=== PATIENT | female | born 1990 | race American Indian/Alaskan Native ===

== ENCOUNTER 2017-01-28 17:46 | Outpatient (CLI) | payer MEDICAID | END 2017-01-28 17:47 | disposition critical access hospital (66) | LOC: EMS 17:46 | PROVIDERS: ATTEND Surgery | DX: R10.9 Unspecified abdominal pain (principal); R03.0 Elevated blood-pressure reading, without diagnosis of hypertension; Z72.89 Other problems related to lifestyle | CPT/HCPCS: A0425; A0429 ==

== ENCOUNTER 2017-01-28 18:02 | Observation (INO) | payer MEDICAID ==
[2017-01-28] MEDS ORDERED: PANTOPRAZOLE 40 MG VIAL IVP STA (18:09)
[2017-01-28] MEDS ORDERED: MULTIVITAMIN 10 ML in SODIUM CHLORIDE 0.9% 1,000 ML IV STA (18:09)
[2017-01-28] MEDS ORDERED: MAGNESIUM SULFATE 2 GRAM 2 GM/50 ML BAG IV STA (18:09)
[2017-01-28] MEDS ORDERED: LORazepam 2 MG/ML VIAL IVP STA (18:09)
[2017-01-28] MEDS ORDERED: ONDANSETRON 4 MG/2 ML VIAL IVP STA ×2 (18:09→20:38)
[2017-01-28] MEDS ORDERED: THIAMINE INJ 100 MG, FOLIC ACID INJ 1 MG in SODIUM CHLORIDE 0.9% 100ML 100 ML IV STA (18:09)
--- NOTE | 2017-01-28 18:12 | ED Physician Documentation ---
PD HPI ABD PAIN - Stated complaint Stated Complaint: ABD PX/ETOH - History obtained from History obtained from: Patient, EMS - History of Present Illness Timing - onset: Other (26-year-old woman with chronic pancreatitis, diabetes, history of alcoholism presents by ambulance. Her chief complaint is left upper quadrant pain that started earlier today. She admits that she has been drinking for several days despite having been sober prior to that for quite some time. She is also out of her medications including Ativan and metformin. She says she is on control though.) Review of Systems Ten Systems: 10 systems reviewed and negative Constitutional: denies: Fever, Chills Nose: denies: Rhinorrhea / runny nose, Congestion Cardiac: denies: Chest pain / pressure, Palpitations Respiratory: denies: Dyspnea, Cough GI: reports: Abdominal Pain, Nausea, Vomiting. denies: Hematemesis PD PAST MEDICAL HISTORY - Past Medical History Past Medical History: Yes Endocrine/Autoimmune: Type 2 diabetes GI: Pancreatitis - Past Surgical History Past Surgical History: No - Present Medications Home Medications: Ambulatory Orders Medication Instructions Recorded Confirmed Lorazepam [Ativan] 2 mg PO BID 01/28/17 01/28/17 Metoprolol Tartrate 1 tab PO BID 01/28/17 01/28/17 metFORMIN [Glucophage] 1 tab PO DAILY 01/28/17 01/28/17 - Allergies Allergies/Adverse Reactions: Allergies Allergy/AdvReac Type Severity Reaction Status Date / Time No Known Drug Allergies Allergy Verified 01/28/17 18:11 - Social History Does the pt drink ETOH?: Yes ETOH Use: Liquor - Family History Family history: reports: Non contributory PD ED PE NORMAL - Vitals Vital signs reviewed: Yes - General General: Alert and oriented X 3, No acute distress - HEENT HEENT: EOMI - Neck Neck: Supple, no meningeal sign, No bony TTP - Cardiac Cardiac: RRR (Tachycardic), No murmur - Respiratory Respiratory: No respiratory distress, Clear bilaterally - Abdomen Abdomen: Other (Mild tenderness left upper quadrant without surgical signs) - Extremities Extremities: No deformity, No tenderness to palpate, No edema, No calf tenderness / cord - Neuro Neuro: Alert and oriented X 3, Normal speech - Psych Psych: Normal mood, Normal affect Results - Vitals Vitals: Vital Signs - 24 hr 01/28/17 01/28/17 01/28/17 18:09 20:01 22:23 Temperature 37.1 C Heart Rate 116 H 113 H 120 H Respiratory 20 19 20 Rate Blood Pressure 166/111 H 130/99 H 130/84 H O2 Saturation 96 98 97 01/28/17 22:46 Temperature 37.0 C Heart Rate Respiratory Rate Blood Pressure O2 Saturation Oxygen O2 Source Room air - Labs Labs: Laboratory Tests 01/28/17 01/28/17 01/28/17 18:25 18:25 20:15 WBC 12.9 H RBC 5.00 Hgb 14.5 Hct 44.2 MCV 88.4 MCH 29.0 MCHC 32.8 RDW 16.0 H Plt Count 574 H MPV 6.8 L Neut # 10.1 H Lymph # 2.0 [place] # 0.5 Eos # 0.0 Baso # 0.1 Absolute Nucleated RBC 0.01 Nucleated RBC % 0.1 Sodium 138 Potassium 3.5 Chloride 96 L Carbon Dioxide 19 L Anion Gap 23.0 H BUN 5 L Creatinine 0.7 Estimated GFR (MDRD) 100 Glucose 294 H POC Whole Bld Glucose Calcium 9.0 Magnesium 2.0 Total Bilirubin 0.8 AST 49 H ALT 12 Alkaline Phosphatase 113 Total Protein 8.7 H Albumin 5.1 Globulin 3.6 Albumin/Globulin Ratio 1.4 Lipase 12 L Urine Color Urine Clarity Urine pH Ur Specific [place] Urine Protein Urine Glucose (UA) Urine Ketones Urine Occult Blood Urine Nitrite Urine Bilirubin Urine Urobilinogen Ur Leukocyte Esterase Urine RBC Urine WBC Ur Squamous Epith Cells Urine Bacteria Ur Microscopic Review Urine Culture Comments Urine HCG, Qual Urine Opiates Screen NEGATIVE Ur Oxycodone Screen NEGATIVE Urine Methadone Screen NEGATIVE Ur Propoxyphene Screen NEGATIVE Ur Barbiturates Screen NEGATIVE Ur Tricyclics Screen NEGATIVE Ur Phencyclidine Scrn NEGATIVE Ur Amphetamine Screen NEGATIVE U Methamphetamines Scrn POSITIVE H U Benzodiazepines Scrn NEGATIVE Urine Cocaine Screen POSITIVE H U Cannabinoids Screen NEGATIVE Ethyl Alcohol 341.8 01/28/17 01/28/17 20:15 22:53 WBC RBC Hgb Hct MCV MCH MCHC RDW Plt Count MPV Neut # Lymph # [place] # Eos # Baso # Absolute Nucleated RBC Nucleated RBC % Sodium Potassium Chloride Carbon Dioxide Anion Gap BUN Creatinine Estimated GFR (MDRD) Glucose POC Whole Bld Glucose 210 H Calcium Magnesium Total Bilirubin AST ALT Alkaline Phosphatase Total Protein Albumin Globulin Albumin/Globulin Ratio Lipase Urine Color YELLOW Urine Clarity HAZY Urine pH 6.0 Ur Specific [place] 1.020 Urine Protein 30 H Urine Glucose (UA) 500 H Urine Ketones NEGATIVE Urine Occult Blood SMALL H Urine Nitrite NEGATIVE Urine Bilirubin NEGATIVE Urine Urobilinogen 0.2 (NORMAL) Ur Leukocyte Esterase SMALL H Urine RBC 6-10 H Urine WBC >25 H Ur Squamous Epith Cells FEW Squamous Urine Bacteria Few Ur Microscopic Review INDICATED Urine Culture Comments INDICATED Urine HCG, Qual NEGATIVE Urine Opiates Screen Ur Oxycodone Screen Urine Methadone Screen Ur Propoxyphene Screen Ur Barbiturates Screen Ur Tricyclics Screen Ur Phencyclidine Scrn Ur Amphetamine Screen U Methamphetamines Scrn U Benzodiazepines Scrn Urine Cocaine Screen U Cannabinoids Screen Ethyl Alcohol PD MEDICAL DECISION MAKING - ED course ED course: 26-year-old woman presents By ambulance with left upper quadrant pain in the setting of alcohol intoxication, no evidence of recurrent pancreatitis. This is most consistent with alcoholic gastritis for which she was treated with Protonix, GI cocktail, and a banana bag. Despite a blood alcohol of 350 she was awake and talking. She was administered 2 L of crystalloid, 1 banana bag/ 1 saline. Despite this remained persistently tachycardic which cannot be explained by alcohol withdrawal because she is too early in the process for that. She did have a white count and a source of infection with the urine is concerning for pyelonephritis in the setting of uncontrolled diabetes. She was administered Rocephin and IV insulin. Spoke with Dr. Canales for admission at 10: 51 PM. Given that the initial concern was for gastritis and alcoholism, blood cultures/lactate were not ordered initially but were ordered later. Departure - Departure Disposition: ED Place in Observation Clinical Impression: Pyelonephritis Alcoholic gastritis Qualifiers: Chronicity: acute Gastritis bleeding: without bleeding Qualified Code(s): K29.20 - Alcoholic gastritis without bleeding Uncontrolled diabetes mellitus Qualifiers: Diabetes mellitus type: type 2 Diabetes mellitus complication status: with hyperglycemia Diabetes mellitus retirement insulin use: without retirement use Qualified Code(s): E11.65 - Type 2 diabetes mellitus with hyperglycemia Condition: Serious
[2017-01-28 18:37] LABS: BASOPHILS # (AUTO) 0.1 10^3/uL (0.0-0.1); BASOPHILS % (AUTO) 0.9 %; EOSINOPHILS % (AUTO) 0.2 %; HCT - HEMATOCRIT 44.2 % (37.0-47.0); HGB - HEMOGLOBIN 14.5 g/dL (12.0-16.0); LYMPHOCYTES % (AUTO) 15.9 %; MEAN CORPUSCULAR HGB CONC 32.8 g/dL (32.0-36.0); MEAN CORPUSCULAR VOLUME 88.4 fL (81.0-99.0); MEAN PLATELET VOLUME 6.8 fL (7.9-10.8); MONOCYTES # (AUTO) 0.5 10^3/uL (0.0-1.0); MONOCYTES % (AUTO) 4.2 %; NEUTROPHILS # (AUTO) 10.1 10^3/uL (1.5-6.6); NEUTROPHILS % (AUTO) 78.8 %; NUCLEATED RED BLOOD CELLS AUTO 0.1 /100WBC; UNCORRECTED WHITE BLOOD COUNT 12.9 x10^3/uL; WHITE BLOOD COUNT 12.9 x10^3/uL (4.8-10.8)
[2017-01-28 18:57] LABS: ALBUMIN/GLOBULIN RATIO 1.4 (1.0-2.2); BILIRUBIN,TOTAL 0.8 mg/dL (0.2-1.0); CREATININE 0.7 mg/dL (0.4-1.0); POTASSIUM 3.5 mmol/L (3.5-5.0); TOTAL PROTEIN 8.7 g/dL (6.7-8.2)
[2017-01-28 20:23] LABS: BILIRUBIN,URINE NEGATIVE (NEGATIVE)
[2017-01-28 20:26] LABS: HCG UR QUAL NEGATIVE; UA w/ MICROSCOPIC CHARGE YES
[2017-01-28 20:44] LABS: UR CULTURE IF IND INDICATED; WBC,URINE >25 /HPF (0-5)
[2017-01-28] MEDS ORDERED: ONDANSETRON 4 MG/2 ML VIAL ONE (20:45)
[2017-01-28] MEDS ORDERED: cefTRIAXone 1 GM in SODIUM CHLORIDE 0.9% MINIBAG 100 ML IV STA (20:51)
[2017-01-28] MEDS ORDERED: SODIUM CHLORIDE 0.9% 1,000 ML IV ONE (20:52)
[2017-01-28] MEDS ORDERED: LIDOCAINE VISCOUS 2% 15 ML UDC MM STA (21:06)
[2017-01-28] MEDS ORDERED: MAG HYDROX/AL HYDROX/SIMETH 30 ML UDC PO STA (21:06)
[2017-01-28] MEDS ORDERED: INSULIN REGULAR HUMAN 100 UNIT/1 ML 10 ML MDV IVP STA (22:45)
[2017-01-28] MEDS ORDERED: TEMAZEPAM 15 MG CAPSULE PO PRN (23:11)
[2017-01-28] MEDS ORDERED: PROCHLORPERAZINE 10 MG/2 ML VIAL IVP PRN (23:11)
--- NOTE | 2017-01-28 23:27 | HISTORY & PHYSICAL EXAMINATION ---
Chief Complaint - Chief Complaint Chief Complaint: back pain, relapsed on alcohol History of Present Illness - Admitted From Admitted From:: home - History of Present Illness HPI Comment/Other: Ms. Kenyetta Quintero is a 26-year-old female who presented to the emergency room at [facility] with back pain. She has a history of substance abuse and alcoholism and relapsed 2 days ago; she does have a history of multiple bouts of pancreatitis. She was found to have gastritis and pyelonephritis and an increased alcohol level in the ED. She has also been noncompliant with her diabetes medications and her blood sugar on admission was 350. She was also found positive for methamphetamine and cocaine metabolites in her urine. History - Past Medical History Cardiovascular: reports: Hypertension Endocrine/Autoimmune: reports: Type 2 diabetes GI: reports: Pancreatitis - POLST Patient has POLST: No Meds/Allgy - Home Medications Home Medications: Ambulatory Orders Medication Instructions Recorded Confirmed Lorazepam [Ativan] 2 mg PO BID 01/28/17 01/28/17 Metoprolol Tartrate 1 tab PO BID 01/28/17 01/28/17 metFORMIN [Glucophage] 1 tab PO DAILY 01/28/17 01/28/17 - Allergies Allergies/Adverse Reactions: Allergies Allergy/AdvReac Type Severity Reaction Status Date / Time No Known Drug Allergies Allergy Verified 01/28/17 18:11 Review of Systems - Constitutional Constitutional: reports: Fatigue, Weakness, Poor appetite - Eyes Eyes: denies: Pain, Spots in vision, Field loss, Dipolpia - Ears, Nose & Throat Ears, Nose & Throat: denies: Ear pain, Hearing loss, Hearing aids, Tinnitus, Vertigo, Nasal discharge - Cardiovascular Cariovascular: denies: Irregular heart rate, Palpitations, Chest pain, Edema - Respiratory Respiratory: denies: Cough, Sputum production, Wheezing, Hemoptysis - Gastrointestinal Gastrointestinal: reports: Abdominal pain. denies: Abdominal distention, Constipation, Diarrhea, Rectal bleeding, Black stools, Bloody stools - Genitourinary Genitourinary: denies: Dysuria, Frequency, Urgency, Hematuria - Musculoskeletal Musculoskeletal: reports: Back pain, Muscle aches, Joint pain - Integumentary Integumentary: denies: Rash, Pruritis, Lesions, Dryness - Neurological Neurological: reports: Headache. denies: General weakness, Focal weakness, Dizziness, Memory problems - Psychiatric Psychiatric: denies: Depression, Anxiety, Suicidal (Positive history of substance abuse, relapsed 2 days ago.) - Endocrine Endocrine: denies: Polyuria, Polydypsia, Polyphagia - Hematologic/Lymphatic Hematologic/Lymphatic: denies: Anemia, Bruising, Petechiae, Bleeding tendencies - All Other Systems All Other Systems: reports: Reviewed and negative Exam - Vital Signs Reviewed Vital Signs: Yes Vital Signs: Vital Signs x48h Temp Pulse Resp BP Pulse Ox 01/28/17 22:46 37.0 C 01/28/17 22:23 120 H 20 130/84 H 97 01/28/17 20:01 113 H 19 130/99 H 98 01/28/17 18:09 37.1 C 116 H 20 166/111 H 96 - Physical Exam General Appearance: positive: No acute distress, Alert, Anxious Eyes Bilateral: positive: Normal inspection, PERRL, EOMI ENT: positive: ENT inspection nml, Pharynx nml, No signs of dehydration. negative: Dry mucous membranes Neck: positive: Nml inspection, Thyroid nml, No JVD, Trachea midline. negative : Thyromegaly Respiratory: positive: Chest non-tender, No respiratory distress, Breath sounds nml. negative: Wheezes, Rales, Rhonchi Cardiovascular: positive: Regular rate & rhythm, No murmur, No gallop, Tachycardia. negative: Extrasystoles Peripheral Pulses: positive: 2+ Abdomen: positive: Non-tender, No organomegaly, Nml bowel sounds, Tenderness ( mild). negative: Guarding, Rebound, Hepatomegaly, Splenomegaly Back: positive: Nml inspection Skin: positive: Color nml, No rash, Warm, Dry. negative: Cyanosis Extremities: positive: Non-tender, Full ROM, Nml appearance Neurologic/Psychiatric: positive: Oriented x3, CN's nml (2-12). negative: Slurred/abnml speech Conclusion/Plan - Problem List (1) Alcoholic gastritis Conclusion/Plan: We will continue with PPIs, fluids and IV antibiotics. Will monitor overnight. Qualifiers: Chronicity: acute Gastritis bleeding: without bleeding Qualified Code(s) : K29.20 - Alcoholic gastritis without bleeding (2) Pyelonephritis Conclusion/Plan: We will start the patient on Macrodantin tomorrow, continue with IV fluids and IV antibiotics tonight (3) Uncontrolled diabetes mellitus Conclusion/Plan: We will continue with insulin sliding scale coverage and will restart metformin Qualifiers: Diabetes mellitus type: type 2 Diabetes mellitus complication status: with hyperglycemia Diabetes mellitus custodial insulin use: without custodial use Qualified Code(s): E11.65 - Type 2 diabetes mellitus with hyperglycemia - Lab Results Fish Bones: 01/28/17 18:25 01/28/17 18:25 Issues/Core Measures - Anticipated LOS Anticipated Stay Length: Less than 2 midnights - [facility] Requirement for [facility] I expect patient to be DC'd or transferred within 96 hours.: Yes - DVT/VTE - Prophylaxis VTE/DVT Device ordered at admit?: Yes
[2017-01-28] MEDS ORDERED: metFORMIN 500 MG TABLET PO SCH (23:45)
[2017-01-28] MEDS ORDERED: POTASSIUM CHLORIDE INJ 20 MEQ in SODIUM CHLORIDE 0.9% 1,000 ML IV SCH (23:45)
[2017-01-29] MEDS: IBUPROFEN 400 MG TABLET PO PRN ×3 (00:25→15:11)
[2017-01-29 00:53] LABS: HEMOGLOBIN A1C 0.71 g/dL
[2017-01-29] MEDS ORDERED: NS W/20 MEQ KCL 1,000 ML IV ONE (02:32)
[2017-01-29] MEDS: SODIUM CHLORIDE FLUSH 0.9% 10 ML SYRINGE IVP SCH ×2 (06:51→13:18)
[2017-01-29 07:34] LABS: HCT - HEMATOCRIT 36.5 % (37.0-47.0); HGB - HEMOGLOBIN 12.3 g/dL (12.0-16.0); MEAN CORPUSCULAR HEMOGLOBIN 29.7 pg (27.0-31.0); MEAN CORPUSCULAR HGB CONC 33.6 g/dL (32.0-36.0); MEAN CORPUSCULAR VOLUME 88.4 fL (81.0-99.0); MEAN PLATELET VOLUME 6.9 fL (7.9-10.8); RED BLOOD COUNT 4.13 10^6/uL (4.20-5.40); RED CELL DISTRIBUTION WIDTH 15.9 % (12.0-15.0); WHITE BLOOD COUNT 14.6 x10^3/uL (4.8-10.8)
[2017-01-29 07:47] LABS: CALCIUM 7.6 mg/dL (8.5-10.3); CREATININE 0.6 mg/dL (0.4-1.0)
[2017-01-29] MEDS: INSULIN ASPART 300 UNIT/3 ML PEN SUBQ SCH ×3 (07:57→16:35)
[2017-01-29] MEDS ORDERED: NS W/20 MEQ KCL 1,000 ML IV SCH (08:00)
[2017-01-29] MEDS: LORazepam 0.5 MG TABLET PO PRN ×2 (08:43→15:11)
[2017-01-29] MEDS ORDERED: FAMOTIDINE 20 MG/50 ML 50 ML IV SCH (09:00)
[2017-01-29] MEDS ORDERED: POLYETHYLENE GLYCOL 3350 17 GM PACKET PO SCH (09:00)
[2017-01-29] MEDS ORDERED: NITROFURANTOIN MACRO 100 MG CAPSULE PO SCH (09:00)
--- NOTE | 2017-01-29 09:32 | PROVIDER PROGRESS NOTE ---
Subjective - Prog Note Date Prog Note Date: 01/29/17 Prog Note Time: 09:31 Objective - Vital Signs/Intake & Output Vital Signs: Vital Signs x48h Temp Pulse Resp BP Pulse Ox 01/29/17 08:01 37.2 C 93 22 139/86 H 100 01/29/17 06:00 37.1 C 84 18 142/84 H 100 Intake & Output: Intake & Output 01/26/17 01/27/17 01/28/17 01/29/17 23:59 23:59 23:59 23:59 Intake Total 1000 1786.2 Balance 1000 1786.2 - Lab Results Fish Bones: 01/29/17 07:26 01/29/17 07:26 Other Labs: Lab Results x24hrs 01/29/17 01/29/17 01/29/17 Range/Units 07:50 07:26 07:26 WBC 14.6 H (4.8-10.8) x10^3/uL RBC 4.13 L (4.20-5.40) 10^6/uL Hgb 12.3 (12.0-16.0) g/dL Hct 36.5 L (37.0-47.0) % MCV 88.4 (81.0-99.0) fL MCH 29.7 (27.0-31.0) pg MCHC 33.6 (32.0-36.0) g/dL RDW 15.9 H (12.0-15.0) % Plt Count 401 (130-450) 10^3/uL MPV 6.9 L (7.9-10.8) fL Sodium 136 (135-145) mmol/L Potassium 4.0 (3.5-5.0) mmol/L Chloride 102 (101-111) mmol/L Carbon Dioxide 21 (21-32) mmol/L Anion Gap 13.0 (6-13) BUN 8 (6-20) mg/dL Creatinine 0.6 (0.4-1.0) mg/dL Estimated GFR (MDRD) 120 (>89) Glucose 136 H (70-100) mg/dL POC Whole Bld Glucose 127 H (70 - 100) mg/dL Glycated Hemoglobin (4.6-6.2) % Estim Average Glucose (70-100) Lactic Acid (0.5-2.2) mmol/L Calcium 7.6 L (8.5-10.3) mg/dL 01/29/17 01/28/17 01/28/17 Range/Units 06:11 23:24 23:24 WBC (4.8-10.8) x10^3/uL RBC (4.20-5.40) 10^6/uL Hgb (12.0-16.0) g/dL Hct (37.0-47.0) % MCV (81.0-99.0) fL MCH (27.0-31.0) pg MCHC (32.0-36.0) g/dL RDW (12.0-15.0) % Plt Count (130-450) 10^3/uL MPV (7.9-10.8) fL Sodium (135-145) mmol/L Potassium (3.5-5.0) mmol/L Chloride (101-111) mmol/L Carbon Dioxide (21-32) mmol/L Anion Gap (6-13) BUN (6-20) mg/dL Creatinine (0.4-1.0) mg/dL Estimated GFR (MDRD) (>89) Glucose (70-100) mg/dL POC Whole Bld Glucose 116 H (70 - 100) mg/dL Glycated Hemoglobin 7.3 H (4.6-6.2) % Estim Average Glucose 163 H (70-100) Lactic Acid 3.3 H* (0.5-2.2) mmol/L Calcium (8.5-10.3) mg/dL
[2017-01-29] MEDS ORDERED: LORazepam 2 MG/ML VIAL IVP PRN (09:54)
[2017-01-29] MEDS ORDERED: LORazepam 0.5 MG TABLET PO PRN (09:54)
[2017-01-29] MEDS ORDERED: ACETAMINOPHEN 500 MG TABLET PO PRN (09:59)
[2017-01-29] MEDS ORDERED: THIAMINE INJ 100 MG, FOLIC ACID INJ 1 MG in SODIUM CHLORIDE 0.9% 100ML 100 ML IV SCH (10:00)
[2017-01-29] MEDS ORDERED: METOPROLOL TARTRATE 25 MG TABLET PO SCH (10:00)
[2017-01-29] MEDS ORDERED: FAMOTIDINE 20 MG TABLET PO SCH (10:00)
[2017-01-29 10:29] LABS: BASOPHILS % (AUTO) 0.2 %; EOSINOPHILS # (AUTO) 0.1 10^3/uL (0.0-0.7); EOSINOPHILS % (AUTO) 0.5 %; HCT - HEMATOCRIT 36.2 % (37.0-47.0); HGB - HEMOGLOBIN 12.1 g/dL (12.0-16.0); LYMPHOCYTES # (AUTO) 1.6 10^3/uL (1.5-3.5); LYMPHOCYTES % (AUTO) 11.2 %; MEAN CORPUSCULAR HEMOGLOBIN 29.5 pg (27.0-31.0); MEAN CORPUSCULAR HGB CONC 33.4 g/dL (32.0-36.0); MEAN CORPUSCULAR VOLUME 88.2 fL (81.0-99.0); NEUTROPHILS # (AUTO) 11.6 10^3/uL (1.5-6.6); NEUTROPHILS % (AUTO) 81.1 %; RED BLOOD COUNT 4.11 10^6/uL (4.20-5.40); RED CELL DISTRIBUTION WIDTH 15.9 % (12.0-15.0); UNCORRECTED WHITE BLOOD COUNT 14.4 x10^3/uL; WHITE BLOOD COUNT 14.4 x10^3/uL (4.8-10.8)
[2017-01-29 10:40] LABS: ALBUMIN/GLOBULIN RATIO 1.4 (1.0-2.2); BILIRUBIN,TOTAL 1.3 mg/dL (0.2-1.0); CALCIUM 7.4 mg/dL (8.5-10.3); CREATININE 0.6 mg/dL (0.4-1.0); TOTAL PROTEIN 6.6 g/dL (6.7-8.2)
[2017-01-29] MEDS: SODIUM CHLORIDE FLUSH 0.9% 10 ML SYRINGE IVP PRN ×2 (11:05→14:05)
[2017-01-29 11:40] LABS: INR 1.1 (0.8-1.2)
[2017-01-29] MEDS ORDERED: MAGIC MOUTHWASH 120 ML BOTTLE PO PRN (15:12)
[2017-01-29 16:05] VITALS: BP 146/103
--- NOTE | 2017-01-29 16:19 | DISCHARGE SUMMARY ---
Discharge Summary Admit Date: 01/28/17 Discharge Date: 01/29/17 Discharging Provider: MICHAEL Mosley Code Status: Attempt Resuscitation Condition at Discharge: Good Discharge Disposition: 01 Home, Self Care - DIAGNOSES Admission Diagnoses: Alcoholic gastritis without bleeding (K29.20) Tubulo-interstitial nephritis, not specified as acute or chronic (N12) Type 2 diabetes mellitus with hyperglycemia (E11.65) Discharge Diagnoses with Status of Each Condition: Alcoholic gastritis (K29.20) Pyelonephritis (N12) Uncontrolled diabetes mellitus (E11.65) LFT elevation (R79.89) Substance abuse (F19.10) - HPI History of Present Illness: Ms. Kenyetta Quintero is a 26-year-old female who presented to the emergency room at [facility] with back pain. She has a history of substance abuse and alcoholism and relapsed 2 days ago; she does have a history of multiple bouts of pancreatitis. She was found to have gastritis and pyelonephritis and an increased alcohol level in the ED. She has also been noncompliant with her diabetes medications and her blood sugar on admission was 350. She was also found positive for methamphetamine and cocaine metabolites in her urine. - ALLERGIES Allergies/Adverse Reactions: Allergies Allergy/AdvReac Type Severity Reaction Status Date / Time No Known Drug Allergies Allergy Verified 01/28/17 18:11 - MEDICATIONS Home Medications: Ambulatory Orders Medication Instructions Recorded Confirmed Metoprolol Tartrate 25 mg PO BID 01/28/17 01/29/17 metFORMIN [Glucophage] 500 mg PO DAILY 01/28/17 01/29/17 Acetaminophen [Tylenol Extra 500 mg PO Q4H PRN 01/29/17 01/29/17 Strength] Nitrofurantoin [Macrobid] 100 mg PO BID #14 capsule 01/29/17 clonazePAM [Clonazepam] 1 mg PO BID PRN #5 tablet 01/29/17 - PHYSICAL EXAM AT DISCHARGE General Appearance: positive: No acute distress, Alert Eyes Bilateral: positive: Normal inspection ENT: positive: ENT inspection nml, Pharynx nml, No signs of dehydration Neck: positive: Nml inspection, Thyroid nml, No JVD, Trachea midline Respiratory: positive: Chest non-tender, No respiratory distress, Breath sounds nml Cardiovascular: positive: Regular rate & rhythm, No murmur, No gallop Peripheral Pulses: positive: 2+ Abdomen: positive: Non-tender, No organomegaly, Nml bowel sounds, No distention Back: positive: CVA tenderness (R), CVA tenderness (L) Skin: positive: Color nml, No rash, Warm, Dry Extremities: positive: Non-tender, Full ROM, No pedal edema Neurologic/Psychiatric: positive: Oriented x3, CN's nml (2-12), Motor nml, Sensation nml, Depressed mood/affect Reflexes: Bicep (R): 3+, Bicep (L): 3+ - LABS Result Diagrams: 01/29/17 10:23 01/29/17 10:23 - DIAGNOSTIC IMAGING Diagnostic Imaging Results: Final report reviewed - FOLLOW UP Follow Up: Please see your PCP in the next few days as a follow up to this hospitalization. Please complete all of your antibiotics. - TIME SPENT Time Spent in Discharge (Minutes): 60
[2017-01-29] MEDS ORDERED: LORazepam 0.5 MG TABLET PO ONE (16:24)
--- NOTE | 2017-01-29 16:30 | Discharge Plan ---
Discharge Plan Disposition: 01 Home, Self Care Condition: Good Prescriptions: clonazePAM [Clonazepam] 1 mg PO BID PRN #5 tablet PRN Reason: PANICATTACK Nitrofurantoin [Macrobid] 100 mg PO BID #14 capsule Diet: Diabetic Activity Restrictions: No Restrictions Shower Restrictions: No Driving Restrictions: No Weight Bearing: Full Weight Additional Instructions or Follow Up instructions: Please see your PCP in the next few days as a follow up to this hospitalization. Please complete all of your antibiotics. Follow-Up Care: Dietitian No Smoking: If you smoke, Please STOP! Call for help.
== END 2017-01-29 18:00 | disposition home or self-care (01) ==
LOC: ED 18:02 → OBS 23:11
PROVIDERS: ADMIT Hospitalist; ATTEND Nurse Practitioner
DX: K29.20 Alcoholic gastritis without bleeding (principal); N12 Tubulo-interstitial nephritis, not specified as acute or chronic; E11.65 Type 2 diabetes mellitus with hyperglycemia; T38.3X6A Underdosing of insulin and oral hypoglycemic [antidiabetic] drugs, initial encounter; F10.229 Alcohol dependence with intoxication, unspecified; Y90.8 Blood alcohol level of 240 mg/100 ml or more; F19.10 Other psychoactive substance abuse, uncomplicated; I10 Essential (primary) hypertension; Z87.19 Personal history of other diseases of the digestive system; Z79.3 Long term (current) use of hormonal contraceptives; Z91.14 Patient's other noncompliance with medication regimen
CPT/HCPCS: 36415; 80048; 80053; 80306; 80320; 81001; 81025; 82977; 83036; 83605; 83690; 83735; 85025; 85027; 85610; 87040; 87086; 96361; 96365; 96366; 96368; 96375; 96376; 99284; 99285; A9270; G0378; J2060; J3411; 81003